=== PATIENT | female | born 1995 | race Caucasian/White ===

== ENCOUNTER 2024-01-04 07:21 | Outpatient (RCR) | payer OTHER, SELFPAY | END 2024-01-04 23:59 | disposition home or self-care (01) | LOC: RPT 07:21 | PROVIDERS: ATTENDING PHYSICIAN Advanced Practice Midwife; FAMILY PHYSICIAN Nurse Practitioner | DX: N39.46 Mixed incontinence (principal); M62.89 Other specified disorders of muscle; N81.89 Other female genital prolapse; N94.10 Unspecified dyspareunia; Z73.6 Limitation of activities due to disability | CPT/HCPCS: 97110; 97112 ==

== ENCOUNTER 2024-01-25 08:39 | Outpatient (RCR) | payer OTHER, SELFPAY | END 2024-01-25 23:59 | disposition home or self-care (01) | LOC: RPT 08:39 | PROVIDERS: ATTENDING PHYSICIAN Advanced Practice Midwife; FAMILY PHYSICIAN Nurse Practitioner | DX: N39.46 Mixed incontinence (principal); M62.89 Other specified disorders of muscle; N81.89 Other female genital prolapse; N94.10 Unspecified dyspareunia; Z73.6 Limitation of activities due to disability; Z33.1 Pregnant state, incidental | CPT/HCPCS: 97110; 97112 ==

== ENCOUNTER 2024-04-25 06:45 | Inpatient (IN) | payer OTHER, SELFPAY ==
[2024-04-25 07:08] VITALS: BP 117/94; BMI 32.0
[2024-04-25] MEDS: LR 1000 IV (09:00)
[2024-04-25 09:12] LABS: % Basophils 0.5 % (0-2); % Eosinophils 1.1 % (0-6); % Immature Granulocytes 0.5 % (0-0.5); % Monocytes 6.5 % (1.7-9.3); % Neutrophils 73.4 % (42.2-75.2); Absolute Basophils 0.1 10^3/uL (0-0.2); Absolute Eosinophils 0.1 10^3/uL (0-0.7); Absolute Immature Granulocytes 0.1 10^3/uL (0-0.05); Absolute Lymphocytes 2.3 10^3/uL (1.2-3.4); Absolute Monocytes 0.8 10^3/uL (0.1-0.6); Absolute Neutrophils 9.5 10^3/uL (1.4-6.5); Hematocrit 33.6 % (37.0-47.0); Hemoglobin 11.8 g/dL (12.0-16.0); Mean Corp Hgb Conc. 35.1 g/dL (33.0-37.0); Mean Corpuscular Hgb 29.2 pg (27.0-31.0); Mean Corpuscular Volume 83.2 fL (81.0-99.0); Mean Platelet Volume 11.5 fL (7.4-10.4); Nucleated Red Blood Cells % 0 %; Platelet Count 286 10^3/uL (130-400); Red Blood Cell Count 4.04 10^6/uL (4.20-5.40); Red Cell Dist. Width 13.3 % (11.5-14.5); White Blood Cell Count 12.9 10^3/uL (4.8-10.8)
[2024-04-25] MEDS: PITOCIN 30 UNITS/NSS 500 ML IV (11:10)
[2024-04-25] MEDS: MOTRIN 600 MG PO ×2 (11:34→20:11)
[2024-04-25] MEDS: TYLENOL 650 MG PO ×2 (16:11→20:11)
[2024-04-26] MEDS: MOTRIN 600 MG PO ×2 (04:03→10:47)
[2024-04-26] MEDS: TYLENOL 650 MG PO ×2 (04:04→10:47)
[2024-04-26] MEDS: SENOKOT-S 1 TABLET PO (04:07)
== END 2024-04-26 14:31 | disposition home or self-care (01) | DRG 807 ==
LOC: LDRP 06:45
PROVIDERS: ADMITTING PHYSICIAN Advanced Practice Midwife; FAMILY PHYSICIAN Nurse Practitioner
PROC: 10E0XZZ Delivery of Products of Conception, External Approach (ICD-10-PCS; 2024-04-25)
DX: O48.0 Post-term pregnancy (principal); Z37.0 Single live birth; Z3A.40 40 weeks gestation of pregnancy
CPT/HCPCS: 36415; 85025; 86780; 86850; 86900; 86901; 87491; 87591

== ENCOUNTER 2024-07-25 11:17 | Outpatient (RCR) | payer OTHER, SELFPAY | END 2024-07-25 23:59 | disposition home or self-care (01) | LOC: RPT 11:17 | PROVIDERS: ATTENDING PHYSICIAN Advanced Practice Midwife; FAMILY PHYSICIAN Nurse Practitioner | DX: M62.50 Muscle wasting and atrophy, not elsewhere classified, unspecified site (principal); Z73.6 Limitation of activities due to disability; M54.9 Dorsalgia, unspecified; R35.0 Frequency of micturition | CPT/HCPCS: 97140; 97161 ==

== ENCOUNTER 2024-08-21 15:00 | Outpatient (RCR) | payer OTHER, SELFPAY | END 2024-08-21 23:59 | disposition home or self-care (01) | LOC: RPT 15:00 | PROVIDERS: ATTENDING PHYSICIAN Advanced Practice Midwife; FAMILY PHYSICIAN Nurse Practitioner | DX: M62.50 Muscle wasting and atrophy, not elsewhere classified, unspecified site (principal); Z73.6 Limitation of activities due to disability; M54.9 Dorsalgia, unspecified; R35.0 Frequency of micturition | CPT/HCPCS: 97110; 97112; 97140 ==

== ENCOUNTER 2024-09-11 15:01 | Outpatient (RCR) | payer OTHER, SELFPAY | END 2024-09-11 23:59 | disposition home or self-care (01) | LOC: RPT 15:01 | PROVIDERS: ATTENDING PHYSICIAN Advanced Practice Midwife; FAMILY PHYSICIAN Nurse Practitioner | DX: M62.50 Muscle wasting and atrophy, not elsewhere classified, unspecified site (principal); Z73.6 Limitation of activities due to disability; M54.9 Dorsalgia, unspecified; R35.0 Frequency of micturition | CPT/HCPCS: 97110; 97112 ==

== ENCOUNTER 2024-09-26 06:44 | Outpatient (RCR) | payer OTHER, SELFPAY | END 2024-09-26 23:59 | disposition home or self-care (01) | LOC: RPT 06:44 | PROVIDERS: ATTENDING PHYSICIAN Advanced Practice Midwife; FAMILY PHYSICIAN Nurse Practitioner | DX: M62.50 Muscle wasting and atrophy, not elsewhere classified, unspecified site (principal); Z73.6 Limitation of activities due to disability; M54.9 Dorsalgia, unspecified; R35.0 Frequency of micturition | CPT/HCPCS: 97110; 97112; 97140 ==

== ENCOUNTER 2024-11-05 06:51 | Outpatient (RCR) | payer OTHER, SELFPAY | END 2024-11-05 23:59 | disposition home or self-care (01) | LOC: RPT 06:51 | PROVIDERS: ATTENDING PHYSICIAN Advanced Practice Midwife; FAMILY PHYSICIAN Nurse Practitioner | DX: M62.50 Muscle wasting and atrophy, not elsewhere classified, unspecified site (principal); Z73.6 Limitation of activities due to disability; M54.9 Dorsalgia, unspecified; R35.0 Frequency of micturition | CPT/HCPCS: 97110; 97112; 97140 ==

== ENCOUNTER 2024-12-12 08:07 | Outpatient (RCR) | payer OTHER, SELFPAY | END 2024-12-12 23:59 | disposition home or self-care (01) | LOC: RPT 08:07 | PROVIDERS: ATTENDING PHYSICIAN Advanced Practice Midwife; FAMILY PHYSICIAN Nurse Practitioner | DX: M62.50 Muscle wasting and atrophy, not elsewhere classified, unspecified site (principal); Z73.6 Limitation of activities due to disability; M54.9 Dorsalgia, unspecified; R35.0 Frequency of micturition | CPT/HCPCS: 97110; 97112; 97140 ==

== ENCOUNTER 2025-05-22 14:11 | Emergency (ER) | payer OTHER, SELFPAY ==
[2025-05-22 14:13] VITALS: BP 125/85
[2025-05-22 14:17] VITALS: BMI 26.4
[2025-05-22] MEDS: RABAVERT RABIES VACC W-DILUENT 2.5 UNIT IM (17:27)
--- NOTE | 2025-05-22 18:02 | ED.GENMED ---
History of Present Illness
General
Chief Complaint: Rabies
Source: patient
Exam Limitations: none
Time Seen by Provider: 05/22/25 16:27
Nursing documentation reviewed up to this point in time: agreed with
History of Present Illness
History of Present Illness:
30-year-old female presenting to the emergency department today with concerns of a cat bite to her left hand that occurred at 930 this morning roughly 8 hours prior to arrival to the emergency department. She claims that this is a cat that she is
familiar with that does live outside. The cat ran off afterward. She claims that this is a typical behavior for this cat. The cat is not vaccinated. She was able to clean the area prior to coming in. She does have an updated tetanus shot with
recent . Denies any numbness weakness or additional concerns
Review of Systems
Review of Systems
Allergies reviewed?: Yes
All Other Systems: ROS reviewed and negative except as documented in HPI and ROS
Phy Exam
Physical Exam
Physical Exam:
GENERAL: Alert , in no apparent distress
EYE: pupils equal and reactive
NECK: Supple, no significant adenopathy.
ENT: o/p clr, mmm.
CARDIAC: Regular rate and rhythm .
LUNGS: Clear breath sounds bilaterally, no acute respiratory distress, no wheezes/rales/rhonchi
ABDOMEN: Soft, without focal tenderness, no r/g, no cvat
NEUROLOGICAL: Alert and oriented, no focal neuro deficits
SKIN: Small puncture wound to the left hand on the dorsal aspect between the 1st and 2nd metacarpal., Warm and dry, skin intact.
MUSCULOSKELETAL: No edema, well perfused.
PSYCH: Normal and appropriate interaction.
Course
Orders/Labs/Results
Orders:
Orders
05/22/25 17:10
Rabies Immune Globulin/Pf [HyperRAB] 1,310 unit IM NOW STA
05/22/25 17:15
Rabies Vaccine (Pcec)/Pf [Rabavert Rabies Vacc W-Diluent] 2.5 unit IM .ONCE ONE
05/22/25 18:05
Amoxicillin 875 mg/Clav 125 mg [Augmentin 875 mg/125 mg] 1 tablet PO NOW STA
Vital Signs
Initial and Last Documented VS:
Initial Vital Signs
Temp Pulse Resp BP Pulse Ox
97.8 F 88 16 125/85 100
05/22/25 14:13 05/22/25 14:13 05/22/25 14:13 05/22/25 14:13 05/22/25 14:13
Last Documented Vital Signs
Temp Pulse Resp BP Pulse Ox
97.8 F 88 16 125/85 100
05/22/25 14:13 05/22/25 14:13 05/22/25 14:13 05/22/25 14:13 05/22/25 18:05
MDM/Problems Addressed
MDM/Problems Addressed:
30-year-old female presenting to the emergency department today with concerns of a cat bite earlier this morning. She is up-to-date with her tetanus shot. The cat did not get vaccinated. Patient is seeking rabies vaccination. She was given
immunoglobulin as well as the vaccine and given a prescription for subsequent vaccinations. Additionally started on Augmentin and also irrigated the wound for multiple minutes while here. Return precautions given for any signs of infection or
additional concerns.
*Pulse Oximetry
SaO2: 100
Oxygen Mode of Delivery: Room air
Patient hypoxic: no (100)
*Critical Care Note
Total Time (30-74mins, 75-104mins- exclusive of procedures): Not Applicable
ED Attending Note
-
Portions of this chart may have been created with voice recognition software.� Occasional wrong word or��sound alike� substitutions may have occurred due to the inherent limitations of voice recognition software.
Discharge Plan
Departure
Patient Disposition: Home (Routine Discharge)
Date of Disposition: 05/22/25
Time of Disposition: 18:02
Patient with high blood pressure during this ER visit?: No
Condition: Good
Covid-19: Not Applicable
Discharge Problem:
Cat bite
Instructions: Animal Bites (DC), Rabies
Prescriptions:
New
amoxicillin-pot clavulanate 875-125 mg tablet
1 tab PO BID 5 Days Qty: 10 0RF
RabAvert (PF) 2.5 unit Suspension For Reconstitution
1 ml IM . DIRECTED Qty: 3 0RF
Rx Instructions:
See Rabies Vaccine Post Exposure Prophylaxis Instruction Sheet for Dosing Instructions
No Action
acetaminophen 325 mg Tablet
650 mg PO Q4HPRN PRN (Reason: mild pain) Qty: 0 0RF
sennosides-docusate sodium 8.6-50 mg Tablet
1 tab PO DAILYPRN PRN (Reason: constipation) Qty: 0 0RF
ibuprofen 600 mg Tablet
600 mg PO Q6HPRN PRN (Reason: moderate pain/cramps) Qty: 45 0RF
Referrals:
NONE,* [Family Provider, Internal Medicine]
Stand Alone Forms: Rabies Vaccine Post Exp Dosing
Activity Restrictions/Additional Instructions:
You came to the emergency department today with concerns of cat bite. Please keep the area clean covered and follow-up for subsequent rabies vaccination. Additionally take your Augmentin twice daily for the next 5 days. Return for any worsening,
new or concerning symptoms.
Interventions
Interventions:
*Risk Screen - Suicide Last Done: 05/22/25 14:13
*Neglect/Abuse Screening Last Done: 05/22/25 14:13
Discharge Date and Time
Print Language: LITHUANIAN
[2025-05-22] MEDS: AUGMENTIN 875 MG/125 MG 1 TABLET PO (18:13)
[2025-05-22 18:32] VITALS: BP 122/67
== END 2025-05-22 18:33 | disposition home or self-care (01) ==
LOC: EMR 14:11
PROVIDERS: EMERGENCY PHYSICIAN Emergency Medicine
DX: S61.452A Open bite of left hand, initial encounter (principal); W55.01XA Bitten by cat, initial encounter; Z20.3 Contact with and (suspected) exposure to rabies; Z23 Encounter for immunization; Z29.14 Encounter for prophylactic rabies immune globulin
CPT/HCPCS: 99283; 90471; 96372; 90375; 90675

== ENCOUNTER 2025-06-05 15:10 | Outpatient (RCR) | payer OTHER, SELFPAY ==
[2025-05-25 15:19] VITALS: BP 117/71
[2025-05-25] MEDS: RABAVERT RABIES VACC W-DILUENT 2.5 UNIT IM (15:26)
[2025-05-29 15:22] VITALS: BP 110/67
[2025-05-29] MEDS: RABAVERT RABIES VACC W-DILUENT 2.5 UNIT IM (15:26)
[2025-06-05 15:16] VITALS: BP 107/59
[2025-06-05] MEDS: RABAVERT RABIES VACC W-DILUENT 2.5 UNIT IM (15:21)
== END 2025-06-08 10:26 | disposition home or self-care (01) ==
LOC: OID 15:10
PROVIDERS: ATTENDING PHYSICIAN Emergency Medicine
DX: Z20.3 Contact with and (suspected) exposure to rabies (principal); Z23 Encounter for immunization
CPT/HCPCS: 90471; 90675